=== PATIENT | female | born 1980 | race Two or more races ===

== ENCOUNTER 2023-11-19 15:57 | Emergency (ER) | payer MEDICAID, OTHER ==
[~2023-11-19] VITALS: Ht 152.4 cm; Wt 111.1 kg
[2023-11-19 17:59] LABS: Basophils # (auto) 0 10 ^3/uL (0-0.2); Basophils % (auto) 0.4 % (0.0-2.0); Eosinophils # (auto) 0.5 10 ^3/uL (0-0.8); Eosinophils % (auto) 6.9 % (0.0-7.0); Hematocrit 39.8 % (36.0-46.0); Hemoglobin 13.3 g/dL (12.2-16.2); Lymphocytes # (auto) 1.4 10 ^3/uL (0.4-5.4); Lymphocytes % (auto) 19.6 % (10.0-50.0); Mean Corpuscular Hemoglobin 30.5 pg (28.0-32.0); Mean Corpuscular Hgb Conc. 33.3 g/dL (32.0-36.0); Mean Corpuscular Volume 91.6 fL (80.0-100.0); Monocytes # (auto) 0.5 10 ^3/uL (0-1.3); Monocytes % (auto) 7.6 % (0.0-12.0); Neutrophils # (auto) 4.7 10 ^3/uL (1.6-8.6); Neutrophils % (auto) 65.5 % (37.0-80.0); Nucleated Red Blood Cells % 0.8 %; Red Blood Cells 4.35 10^6/uL (4.0-5.20); Red Cell Distribution Width 12.8 % (11.8-14.3); White Blood Cell 7.2 10^3/uL (4.4-10.8)
[2023-11-19 18:12] LABS: Alanine Aminotransferase 23 U/L (7-40); Albumin 4.2 g/dL (3.2-4.8); Alkaline Phosphatase 66 U/L (46-116); Anion Gap 7 (5-15); Aspartate Aminotransferase 29 U/L (13-40); BUN/Creatinine Ratio 20.9 (10.0-20.0); Bilirubin, Total 0.3 mg/dL (0.2-1.0); Blood Urea Nitrogen 14 mg/dL (9-23); Calcium 9.8 mg/dL (8.7-10.4); Carbon Dioxide 25 mmol/L (20-30); Chloride 107 mmol/L (98-107); Glucose 100 mg/dL (74-106); Lipase 25 U/L (12-53); Potassium 4.7 mmol/L (3.5-5.1); Sodium 139 mmol/L (136-145); Total Protein 6.9 g/dL (5.7-8.2)
[2023-11-19 23:24] LABS: Urine Bacteria None Seen /hpf (None Seen)
[2023-11-19 23:55] LABS: Urine Blood TRACE /uL (Negative); Urine Clarity Clear (Clear); Urine Color Yellow (Yellow); Urine Mucus FEW (None Seen); Urine Protein, UAD Negative (Negative); Urine Specific Gravity 1.028 (1.001-1.035); Urine Urobilinogen Normal (Negative); Urine WBC 4 /hpf (0 - 5); Urine pH 5.5 (5.0-9.0)
[2023-11-20] MEDS ORDERED: ZOFR4T PO (00:49)
[2023-11-20] MEDS ORDERED: FAMO20TA10 PO (00:49)
[2023-11-20] MEDS ORDERED: HYDR-4902 PO (00:49)
[2023-11-20] MEDS: SODIUM CHLORIDE 0.9% 1,000 ML IV ONE (01:51)
[2023-11-20] MEDS: ONDANSETRON HCL 4 MG/2 ML VIAL IV ONE (01:55)
[2023-11-20] MEDS: PANTOPRAZOLE 40 MG/10 ML VIAL INJ IV ONE (01:55)
[2023-11-20] MEDS: MORPHINE SULFATE 4 MG/ML SYR/VIAL IV ONE (01:56)
[2023-11-20 02:02] VITALS: TEMP 98.1; O2SAT 95
[2023-11-20 02:31] VITALS: BP 125/72; PULSE 82; RESP 20
== END 2023-11-20 02:36 | disposition home or self-care (01) ==
LOC: ER 15:57
DX: N83.201 Unspecified ovarian cyst, right side (principal); K62.5 Hemorrhage of anus and rectum; R10.11 Right upper quadrant pain; R10.31 Right lower quadrant pain; R19.7 Diarrhea, unspecified; I10 Essential (primary) hypertension; Z79.899 Other long term (current) drug therapy
CPT/HCPCS: 36415; 74176; 76856; 80053; 81001; 81025; 82270; 83690; 85025; 96361; 96374; 96375; 99285; C9113; J2270; J2405; J7030

== ENCOUNTER 2024-03-01 18:39 | Emergency (ER) | payer MEDICAID ==
[~2024-03-01] VITALS: Ht 175.3 cm; Wt 105.0 kg
[~2024-03-01 18:39] MED LIST: FAMO20TA10 PO; HYDR-4902 PO; ZOFR4T PO
[2024-03-01 19:08] LABS: Urine Bacteria None Seen /hpf (None Seen)
[2024-03-01 19:21] LABS: Urine Blood 3+ /uL (Negative); Urine Clarity Clear (Clear); Urine Color Light-Yellow (Yellow); Urine Protein, UAD Negative (Negative); Urine Specific Gravity 1.014 (1.001-1.035); Urine Urobilinogen Normal (Negative); Urine WBC 22 /hpf (0 - 5); Urine pH 5.5 (5.0-9.0)
[2024-03-01 19:54] LABS: Basophils # (auto) 0.1 10 ^3/uL (0-0.2); Basophils % (auto) 0.7 % (0.0-2.0); Eosinophils # (auto) 0.6 10 ^3/uL (0-0.8); Eosinophils % (auto) 8.3 % (0.0-7.0); Hematocrit 38.9 % (36.0-46.0); Hemoglobin 13.2 g/dL (12.2-16.2); Lymphocytes # (auto) 1.9 10 ^3/uL (0.4-5.4); Lymphocytes % (auto) 27.5 % (10.0-50.0); Mean Corpuscular Hemoglobin 30.7 pg (28.0-32.0); Mean Corpuscular Hgb Conc. 33.9 g/dL (32.0-36.0); Mean Corpuscular Volume 90.8 fL (80.0-100.0); Monocytes # (auto) 0.5 10 ^3/uL (0-1.3); Monocytes % (auto) 6.7 % (0.0-12.0); Neutrophils % (auto) 56.8 % (37.0-80.0); Nucleated Red Blood Cells % 0.1 %; Platelet Count (auto) 329 10^3/uL (140-450); Red Blood Cells 4.29 10^6/uL (4.0-5.20); Red Cell Distribution Width 12.6 % (11.8-14.3)
[2024-03-01 20:09] LABS: Chloride 105 mmol/L (98-107); Potassium 4.1 mmol/L (3.5-5.1); Sodium 137 mmol/L (136-145)
[2024-03-01 20:10] LABS: Anion Gap 6 (5-15); Calcium 9.1 mg/dL (8.7-10.4); Carbon Dioxide 26 mmol/L (20-30)
[2024-03-01 20:15] LABS: BUN/Creatinine Ratio 11.5 (10.0-20.0); Blood Urea Nitrogen 10 mg/dL (9-23); Glucose 96 mg/dL (74-106)
[2024-03-01 20:16] LABS: INR 1.09 (0.9-1.15); Partial Thromboplastin Time 26.8 SEC (24.5-34.5); Prothrombin Time 11.5 sec (9.3-11.8)
[2024-03-01] MEDS: MORPHINE SULFATE 4 MG/ML SYR/VIAL IV ONE (20:55)
[2024-03-01] MEDS: ONDANSETRON HCL 4 MG/2 ML VIAL IV ONE (20:58)
[2024-03-01] MEDS: SODIUM CHLORIDE 0.9% 1,000 ML IV ONE (20:58)
[2024-03-01] MEDS: cefTRIAXone 1GM/50ML D5W 50 ML IV ONE (20:58)
[2024-03-01] MEDS ORDERED: CEPH500C PO (23:29)
[2024-03-01] MEDS ORDERED: IBUP-1455 PO (23:29)
[2024-03-01] MEDS ORDERED: ACET-1304 PO (23:29)
[2024-03-01 23:57] VITALS: BP 117/72; PULSE 59; RESP 20; TEMP 98; O2SAT 96
== END 2024-03-02 00:05 | disposition home or self-care (01) ==
LOC: ER 18:39
DX: N83.201 Unspecified ovarian cyst, right side (principal)
CPT/HCPCS: 36415; 74176; 76705; 76856; 80048; 81001; 81025; 85025; 85610; 85730; 96365; 96375; 99285; J0696; J2270; J2405; J7030

== ENCOUNTER 2024-04-27 09:54 | Emergency (ER) | payer MEDICAID ==
[~2024-04-27] VITALS: Ht 175.3 cm; Wt 102.9 kg
[~2024-04-27 09:54] MED LIST changes: +ACET-1304 PO; +CEPH500C PO; +IBUP-1455 PO
[2024-04-27] MEDS: HYDROcodone-ACET 10/325MG TAB PO ONE (10:22)
[2024-04-27 10:24] VITALS: BP 105/69; PULSE 80; RESP 18; TEMP 97.9; O2SAT 93
[2024-04-27 10:51] LABS: Urine Bacteria None Seen /hpf (None Seen)
[2024-04-27 11:07] LABS: Urine Blood Negative /uL (Negative); Urine Clarity Clear (Clear); Urine Color Yellow (Yellow); Urine Mucus FEW (None Seen); Urine Protein, UAD Negative (Negative); Urine Specific Gravity 1.032 (1.001-1.035); Urine Urobilinogen Normal (Negative); Urine WBC 1 /hpf (0 - 5)
== END 2024-04-27 11:58 | disposition home or self-care (01) ==
LOC: ER 09:54 → EEVIPCON 09:54 → ER 11:58
DX: N83.202 Unspecified ovarian cyst, left side (principal); I10 Essential (primary) hypertension; Z79.899 Other long term (current) drug therapy; Z98.890 Other specified postprocedural states
CPT/HCPCS: 76830; 76856; 81001